=== PATIENT | male | born 1965 | race Caucasian/White ===

== ENCOUNTER 2018-09-08 08:07 | Emergency (ER) | payer SELFPAY ==
[~2018-09-08] VITALS: Ht 177.8 cm; Wt 94.0 kg
--- NOTE | 2018-09-08 08:25 | NUR ---
PT WITH C/O RLQ ABD PAIN AND GROIN PAIN STARTING AT APPOX 0300 RADIATES TO THE BACK. PT ALSO WITH NAUSEA AND VOMITTING. PT DENIES CP, SOB, TRAUMA. STATES THEY ATE NORMAL FOOD LAST NIGHT AND SHE IS NOT HAVING ANY SYMPTOMS.
[2018-09-08] MEDS ORDERED: ONDANSETRON 2MG/ML, 2ML IVPush ONE (08:30)
[2018-09-08] MEDS ORDERED: SODIUM CHLORIDE FLUSH 10ML SYR IVF ONE (08:30)
[2018-09-08] MEDS ORDERED: MORPHINE SULFATE 4 MG/ML, 1ML IVPush PRN (08:30)
[2018-09-08] MEDS ORDERED: ONDANSETRON 2MG/ML, 2ML ONE (08:41)
[2018-09-08] MEDS ORDERED: MORPHINE SULFATE 4 MG/ML, 1ML ONE (08:42)
[2018-09-08] MEDS ORDERED: AMLO1CAP6 PO (09:09)
--- NOTE | 2018-09-08 09:09 | NUR ---
PT BACK FROM CT, AT BEDSIDE, PT REPORTS PAIN MUCH RELIEVED.
--- NOTE | 2018-09-08 09:38 | NUR ---
ERMD IN TO UPDATE PT ON CT RESULTS, NEW ORDERS RECIEVED. WILL MEDICATE PER MAR
[2018-09-08] MEDS ORDERED: KETOROLAC 30 MG/1 ML ONE (09:43)
[2018-09-08 09:53] LABS: BASOPHILS # (AUTO) 0.02 x10^3/uL (0-0.1); BASOPHILS % (AUTO) 0 % (0-1); EOSINOPHILS # (AUTO) 0.12 x10^3/uL (0-0.4); EOSINOPHILS % (AUTO) 1 % (1-7); LYMPHOCYTES # (AUTO) 0.36 x10^3/uL (1-3.4); LYMPHOCYTES % (AUTO) 4 % (22-44); MD NO; MEAN CORPUSCULAR HEMOGLOBIN 31.6 pg (27.5-34.5); MEAN CORPUSCULAR HGB CONC 34.2 g/dL (33.2-36.2); MEAN CORPUSCULAR VOLUME 92.4 fL (81-97); MEAN PLATELET VOLUME 9.7 fL (7.4-10.4); MONOCYTES # (AUTO) 0.36 x10^3/uL (0.2-0.8); MONOCYTES % (AUTO) 4 % (2-9); NEUTROPHILS # (AUTO) 9.09 x10^3/uL (1.8-6.8); NEUTROPHILS % (AUTO) 92 % (42-75); PLATELET COUNT 159 x10^3/uL (130-400); RED BLOOD COUNT 5.29 x10^6/uL (4.38-5.82); RED CELL DISTRIBUTION WIDTH 13.3 % (9.4-14.8)
[2018-09-08] MEDS ORDERED: KETOROLAC 30 MG/1 ML IVPush ONE (10:00)
[2018-09-08] MEDS ORDERED: SODIUM CHLORIDE 0.9% 1,000ML IVBOLUS ONE (10:00)
[2018-09-08 10:02] LABS: ALANINE AMINOTRANSFERASE 31 U/L (12-78); ALBUMIN 4.3 g/dL (3.4-5.0); CREATININE 1.36 mg/dL (0.7-1.3)
[2018-09-08 10:04] LABS: ANION GAP 11 mmol/L (5-15); CHLORIDE 111 mmol/L (98-107)
[2018-09-08 10:05] LABS: ALKALINE PHOSPHATASE 89 U/L (45-117); BILIRUBIN,TOTAL 0.5 mg/dL (0.2-1.0); TOTAL PROTEIN 7.3 g/dL (6.4-8.2)
[2018-09-08 10:22] VITALS: BP 113/66
--- NOTE | 2018-09-08 10:24 | NUR ---
UA COLLECTED AND SENT, PT STATES FREE OF PAIN AT THIS TIME.
[2018-09-08 10:43] LABS: MICROSCOPIC AUTO
[2018-09-08 11:05] LABS: CULTURE INDICATED? NO
--- NOTE | 2018-09-08 11:54 | NUR ---
Patient/Caregiver given discharge instructions and they have confirmed that they understand the instructions. Patient ambulatory with steady gait.
== END 2018-09-08 11:57 | disposition home or self-care (01) ==
LOC: ED 09:24
DX: N13.2 Hydronephrosis with renal and ureteral calculous obstruction (principal); R11.2 Nausea with vomiting, unspecified; N28.9 Disorder of kidney and ureter, unspecified
CPT/HCPCS: 36415; 74176; 80053; 81001; 85025; 96361; 96374; 96375; 99284; J1885; J2270; J2405; J7030

== ENCOUNTER → 2019-01-20 | Outpatient (CLI) | payer OTHER ==
[~2019-01-20] MED LIST: AMLO1CAP6 PO
== END | disposition home or self-care (01) ==
LOC: CARD 15:36
PROVIDERS: ATTEND Family Medicine
DX: R05 Cough (principal)
CPT/HCPCS: 94060; 94726; 94729